=== PATIENT | female | born 1965 ===

== ENCOUNTER 2017-08-21 10:21 | Emergency (ER) | payer OTHER ==
[2017-08-21] MEDS ORDERED: Sodium Chloride 0.9% 10 ML Syringe FLUSH PRN (11:29)
--- NOTE | 2017-08-21 11:33 | EDM.PDOC ---
ED HPI GENERAL MEDICAL PROBLEM - General Chief Complaint: BUCKLE [employer]ER Problem Stated Complaint: ANEMIA Time Seen by Provider: 08/21/17 11:12 Source of Information: Reports: Patient History Limitations: Reports: No Limitations - History of Present Illness INITIAL COMMENTS - FREE TEXT/NARRATIVE: 51-year-old female presents for evaluation and treatment of menorrhagia. Patient reports that she's had a menstrual cycle since July 24. Over the last 2 weeks she is appreciated heavier passing large clots. She states that she has been having vaginal bleeding every day since July 24 with only 1 day of just spotting. She reports associated symptoms of lightheadedness, fatigue and malaise. She denies any chest pain or syncope. She states that she does not feel that she can adequately catch her breath. She also reports for the last 3 months she had a 15 pound unintentional weight gain. No abdominal pain or cramping. No back pain. She states her menstrual cycles normally are very light and last only about 3 or 4 days. States last 3 months her menstrual cycle has been heavier than normal. Reports she sees to 4 pads since around 0530 this morning and states that they have been completely soaked. She is a . She has appointment to see Dr. Mead on Saturday, she has never seen her before. She has not seen anybody for this problem thus far. Primary care provider is Elyse Leroy. - Related Data Allergies Allergy/AdvReac Type Severity Reaction Status Date / Time banana Allergy Hives Verified 08/21/17 10:37 tomato Allergy Airway Verified 08/21/17 10:37 Tightness Home Meds: Home Meds Ferrous Sulfate 325 mg PO DAILY #30 tablet 08/21/17 [Rx] Norethindrone [Norethindrone Acetate] 10 mg PO DAILY #14 tab 08/21/17 [Rx] ED ROS GENERAL - Review of Systems Review Of Systems: See Below Constitutional: Reports: Malaise, Fatigue, Weight Gain (15 lbs over last 3 months unintentional) Respiratory: Reports: Shortness of Breath Cardiovascular: Denies: Chest Pain, Syncope GI/Abdominal: Denies: Abdominal Pain Musculoskeletal: Denies: Back Pain Neurological: Denies: Syncope ED EXAM, GI/ABD - Physical Exam Exam: See Below Exam Limited By: No Limitations General Appearance: Alert, WD/WN, No Apparent Distress Respiratory/Chest: No Respiratory Distress, Lungs Clear, Normal Breath Sounds Cardiovascular: Normal Peripheral Pulses, Regular Rate, Rhythm, No Murmur GI/Abdominal Exam: Normal Bowel Sounds, Soft, Non-Tender (Female) Exam: Normal External Exam, Vaginal Bleeding (1 dime sized clot present). No: Cervical Dilatation Neurological: Alert, Oriented, Normal Cognition Psychiatric: Normal Affect, Normal Mood Skin Exam: Warm, Dry, Normal Color Course - Vital Signs Last Recorded V/S: Last Vital Signs Temp 36.3 C 08/21/17 10:38 Pulse 80 08/21/17 10:38 Resp BP 141/98 H 08/21/17 10:38 Pulse Ox 100 08/21/17 10:38 Orthostatic Blood Pressure [ 119/94 Standing] Orthostatic Blood Pressure [ 122/98 Sitting] Orthostatic Blood Pressure [ 129/85 Supine] - Orders/Labs/Meds Orders: Active Orders 24 hr Category Date Time Status Orthostatic Vital Signs [RC] ASDIRECTED Care 08/21/17 11:29 Active Pelvic Exam, Set Up [RC] ASDIRECTED Care 08/21/17 11:29 Active Peripheral IV Care [RC] . DIRECTED Care 08/21/17 11:30 Active UA W/MICROSCOPIC [URIN] Stat Lab 08/21/17 11:45 Ordered Peripheral IV Insertion Adult [OM.PC] Routine Oth 08/21/17 11:29 Ordered Labs: Laboratory Tests 08/21/17 08/21/17 08/21/17 Range/Units 11:40 11:40 11:40 WBC 11.00 H (3.98-10.04) K/mm3 RBC 4.61 (3.98-5.22) M/mm3 Hgb 13.3 (11.2-15.7) gm/L Hct 41.5 (34.1-44.9) % MCV 90.0 (79.4-94.8) fl MCH 28.9 (25.6-32.2) pg MCHC 32.0 L (32.2-35.5) g/dl RDW Std Deviation 45.7 (36.4-46.3) fL Plt Count 446 H (182-369) K/mm3 MPV 9.7 (9.4-12.3) fl Neutrophils % (Manual) 73 H (40-60) % Band Neutrophils % 0 (0-10) % Lymphocytes % (Manual) 24 (20-40) % Atypical Lymphs % 0 % Monocytes % (Manual) 2 (2-10) % Eosinophils % (Manual) 1 (0.7-5.8) % Basophils % (Manual) 0 L (0.1-1.2) Platelet Estimate Adequate RBC Morph Comment Normal Sodium 135 L (136-145) mEq/L Potassium 3.9 (3.5-5.1) mEq/L Chloride 98 (98-107) mEq/L Carbon Dioxide 27 (21-32) mEq/L Anion Gap 13.9 (5-15) BUN 11 (7-18) mg/dL Creatinine 0.7 (0.55-1.02) mg/dL Est Cr Clr Drug Dosing 83.03 mL/min Estimated GFR (MDRD) > 60 (>60) mL/min BUN/Creatinine Ratio 15.7 (14-18) Glucose 94 (74-106) mg/dL Calcium 9.9 (8.5-10.1) mg/dL Total Bilirubin 0.3 (0.2-1.0) mg/dL AST 24 (15-37) U/L ALT 22 (14-59) U/L Alkaline Phosphatase 60 (46-116) U/L Total Protein 8.8 H (6.4-8.2) g/dl Albumin 4.4 (3.4-5.0) g/dl Globulin 4.4 gm/dL Albumin/Globulin Ratio 1.0 (1-2) TSH 3rd Generation (0.358-3.74) uIU/mL HCG, Qual Negative (NEGATIVE) Urine Color (Yellow) Urine Appearance (Clear) Urine pH (5.0-8.0) Ur Specific [place] (1.005-1.030) Urine Protein (Negative) Urine Glucose (UA) (Negative) Urine Ketones (Negative) Urine Occult Blood (Negative) Urine Nitrite (Negative) Urine Bilirubin (Negative) Urine Urobilinogen (0.2-1.0) Ur Leukocyte Esterase (Negative) Urine RBC (0-5) /hpf Urine WBC (0-5) /hpf Ur Epithelial Cells (0-5) /hpf Urine Bacteria (FEW) /hpf Urine Mucus (FEW) /hpf Blood Type 08/21/17 08/21/17 08/21/17 Range/Units 11:40 11:40 11:45 WBC (3.98-10.04) K/mm3 RBC (3.98-5.22) M/mm3 Hgb (11.2-15.7) gm/L Hct (34.1-44.9) % MCV (79.4-94.8) fl MCH (25.6-32.2) pg MCHC (32.2-35.5) g/dl RDW Std Deviation (36.4-46.3) fL Plt Count (182-369) K/mm3 MPV (9.4-12.3) fl Neutrophils % (Manual) (40-60) % Band Neutrophils % (0-10) % Lymphocytes % (Manual) (20-40) % Atypical Lymphs % % Monocytes % (Manual) (2-10) % Eosinophils % (Manual) (0.7-5.8) % Basophils % (Manual) (0.1-1.2) Platelet Estimate RBC Morph Comment Sodium (136-145) mEq/L Potassium (3.5-5.1) mEq/L Chloride (98-107) mEq/L Carbon Dioxide (21-32) mEq/L Anion Gap (5-15) BUN (7-18) mg/dL Creatinine (0.55-1.02) mg/dL Est Cr Clr Drug Dosing mL/min Estimated GFR (MDRD) (>60) mL/min BUN/Creatinine Ratio (14-18) Glucose (74-106) mg/dL Calcium (8.5-10.1) mg/dL Total Bilirubin (0.2-1.0) mg/dL AST (15-37) U/L ALT (14-59) U/L Alkaline Phosphatase (46-116) U/L Total Protein (6.4-8.2) g/dl Albumin (3.4-5.0) g/dl Globulin gm/dL Albumin/Globulin Ratio (1-2) TSH 3rd Generation 0.649 (0.358-3.74) uIU/mL HCG, Qual (NEGATIVE) Urine Color Yellow (Yellow) Urine Appearance Clear (Clear) Urine pH 7.0 (5.0-8.0) Ur Specific [place] 1.010 (1.005-1.030) Urine Protein Negative (Negative) Urine Glucose (UA) Negative (Negative) Urine Ketones Negative (Negative) Urine Occult Blood 3+ H (Negative) Urine Nitrite Negative (Negative) Urine Bilirubin Negative (Negative) Urine Urobilinogen 0.2 (0.2-1.0) Ur Leukocyte Esterase Negative (Negative) Urine RBC 5-10 H (0-5) /hpf Urine WBC 0-5 (0-5) /hpf Ur Epithelial Cells 0-5 (0-5) /hpf Urine Bacteria Few (FEW) /hpf Urine Mucus Not seen (FEW) /hpf Blood Type O POSITIVE Meds: Medications Discontinued Medications Generic Name Dose Route Start Last Admin Trade Name Freq PRN Reason Stop Dose Admin Sodium Chloride 1,000 mls @ 999 mls/hr 08/21/17 12:46 08/21/17 13:32 Normal Saline IV 08/21/17 13:46 999 mls/hr ONETIME ONE Administration Sodium Chloride 10 ml 08/21/17 11:29 08/21/17 13:32 Saline Flush FLUSH 10 ml ASDIRECTED PRN Administration Keep Vein Open - Radiology Interpretation Free Text/Narrative:: Pelvic ultrasound: Multiple real-time images were obtained transvaginally. Uterus shows several small fibroids numbering approximately 3. Largest finding measures about 4.2 cm. Endometrial thickness is up to 1.5 cm. Endometrium appears heterogeneous in appearance which is abnormal. Several nabothian cysts are incidentally noted. 3.2 cm simple cyst is noted within the left ovary which is felt to be incidental. Right ovary is unremarkable. No free fluid is seen. Measurements: Uterus: Length 7.1 cm, AP height 4.9 cm, transverse with 5.7 cm Right ovary: 2.7 x 1.1 x 1.5 cm Left ovary: 4.8 x 2.5 or 3.2 cm Impression: 1. Slight fibroid change. 2. Heterogeneous and thickened endometrium at 1.5 cm. 3. Small 3.2 cm cyst within the left ovary which is felt to be incidental. 4. Incidental nabothian cysts. - Re-Assessments/Exams Free Text/Narrative Re-Assessment/Exam: 08/21/17 16:24 Case was discussed with Dr. Callahan, OB transaction manager. He recommended obtaining an ultrasound which we were able to perform. Her endometrium is heterogeneous and thickened. She also does have some fibroids. He recommended star Aygestin 10 mg daily. He will see her in the clinic tomorrow at 1300. In the meantime also recommended starting on some iron supplementation and have her push fluids. She is instructed to return to the ER for symptoms change or worsen. she was made aware that she will likely require an endometrial biopsy to further evaluate this. Will discharge home at this time. Discharge instructions as documented. Departure - Departure Time of Disposition: 16:29 Disposition: Home, Self-Care 01 Condition: Fair Clinical Impression: Dysfunctional uterine bleeding - Discharge Information Prescriptions: Ferrous Sulfate 325 mg PO DAILY #30 tablet Norethindrone [Norethindrone Acetate] 10 mg PO DAILY #14 tab Instructions: Dysfunctional Uterine Bleeding Referrals: PCP,None [Ordering Only Provider] - Tre Callahan MD [Physician] - Forms: ED Department Discharge, ED Return to Work/School Form Additional Instructions: Follow-up with Dr. Callahan at the [facility] out 1 PM tomorrow. Arrive at 12:30 for paperwork. Check in at the first floor on [facility]. call [phone] for any questions. Take the Aygestin 1 daily. Rest. Make sure you are drinking plenty of fluids. Start the iron supple. take this with citrus fruits or vitamin C. Please return to the ER if your symptoms change or worsen. - My Orders Last 24 Hours: My Active Orders 08/21/17 11:29 Orthostatic Vital Signs [RC] ASDIRECTED Pelvic Exam, Set Up [RC] ASDIRECTED Peripheral IV Insertion Adult [OM.PC] Routine 08/21/17 11:30 Peripheral IV Care [RC] . DIRECTED 08/21/17 11:45 UA W/MICROSCOPIC [URIN] Stat - Assessment/Plan Last 24 Hours: My Active Orders 08/21/17 11:29 Orthostatic Vital Signs [RC] ASDIRECTED Pelvic Exam, Set Up [RC] ASDIRECTED Peripheral IV Insertion Adult [OM.PC] Routine 08/21/17 11:30 Peripheral IV Care [RC] . DIRECTED 08/21/17 11:45 UA W/MICROSCOPIC [URIN] Stat
[2017-08-21] MEDS ORDERED: Sodium Chloride 0.9% 1,000 ML IV ONE (12:46)
--- NOTE | 2017-08-21 18:36 | US ---
Pelvic ultrasound: Multiple real-time images were obtained transvaginally. Uterus shows several small fibroids numbering approximately 3. Largest finding measures about 4.2 cm. Endometrial thickness is up to 1.5 cm. Endometrium appears heterogeneous in appearance which is abnormal. Several nabothian cysts are incidentally noted. 3.2 cm simple cyst is noted within the left ovary which is felt to be incidental. Right ovary is unremarkable. No free fluid is seen. Measurements: Uterus: Length 7.1 cm, AP height 4.9 cm, transverse with 5.7 cm Right ovary: 2.7 x 1.1 x 1.5 cm Left ovary: 4.8 x 2.5 or 3.2 cm Impression: 1. Slight fibroid change. 2. Heterogeneous and thickened endometrium at 1.5 cm. 3. Small 3.2 cm cyst within the left ovary which is felt to be incidental. 4. Incidental nabothian cysts. Diagnostic code #3
== END 2017-08-21 17:07 | disposition home or self-care (01) ==
LOC: JD.ED 10:21
DX: N93.8 Other specified abnormal uterine and vaginal bleeding (principal); Z91.048 Other nonmedicinal substance allergy status
CPT/HCPCS: 36415; 76830; 80053; 81001; 84443; 84703; 85025; 86900; 86901; 96360; 99284; J7040; J7050